=== PATIENT | male | born 1970 | race Two or more races ===

== ENCOUNTER 2020-03-02 20:42 | Emergency (ER) | payer OTHER ==
[~2020-03-02] VITALS: Ht 182.9 cm; Wt 77.1 kg
[2020-03-02 22:37] VITALS: BP 143/87
== END 2020-03-03 00:06 | disposition home or self-care (01) ==
LOC: EDBD 20:42 → ER 20:42
DX: S13.4XXA Sprain of ligaments of cervical spine, initial encounter (principal); M50.30 Other cervical disc degeneration, unspecified cervical region; W07.XXXA Fall from chair, initial encounter; Y93.89 Activity, other specified; Y92.89 Other specified places as the place of occurrence of the external cause; Y99.8 Other external cause status
CPT/HCPCS: 70450; 72125